=== PATIENT | male | born 1975 | race Hispanic/Latino ===

== ENCOUNTER 2021-02-08 16:38 | Emergency (ER) | payer SELFPAY ==
[~2021-02-08] VITALS: Ht 177.8 cm; Wt 120.2 kg
[2021-02-08 17:04] VITALS: BP 145/86
[2021-02-08] MEDS ORDERED: LIDOCAINE HCL MPF 1% 5ML VIAL ONE (18:04)
[2021-02-08] MEDS ORDERED: LIDOCAINE HCL 1% 20 ML VIAL INJ SCH (18:15)
[2021-02-08] MEDS ORDERED: DIPH,PERTUSS(ACELL),TET VAC/PF 0.5 ML VIAL IM ONE (18:15)
[2021-02-08] MEDS ORDERED: TETANUS/DIPHTHERIA TOXOID [ADULT] 0.5 ML VIAL IM ONE (18:24)
== END 2021-02-08 18:36 | disposition home or self-care (01) ==
LOC: EDH 16:38
DX: S61.217A Laceration without foreign body of left little finger without damage to nail, initial encounter (principal); W26.0XXA Contact with knife, initial encounter; Y93.89 Activity, other specified; Y92.89 Other specified places as the place of occurrence of the external cause; Y99.8 Other external cause status
CPT/HCPCS: 12002; 90471; 90714; 99283; J3490; 90715